=== PATIENT | male | born 1960 | race Caucasian/White ===

== ENCOUNTER 2018-08-17 08:51 | Outpatient (CLI) | payer BC, SELFPAY ==
[2018-08-17 10:15] LABS: Cholesterol 218 mg/dL (50-200); Glucose 114 mg/dL (70-100); HDL Cholesterol 43 mg/dL (40-60); LDL CHOLESTEROL 109 mg/dL (<100); Triglyceride 146 mg/dL (30-150)
[2018-08-17 10:32] LABS: Uric Acid 6.6 mg/dL (3.5-7.2)
== END 2018-08-17 09:11 ==
PROVIDERS: PCP General Practice; Visit Provider General Practice
DX: Z00.00 Encounter for general adult medical examination without abnormal findings (principal); M10.9 Gout, unspecified; R73.01 Impaired fasting glucose
CPT/HCPCS: 36415; 80061; 82947; 83721; 84550

== ENCOUNTER 2019-01-22 06:12 | Day surgery (SDC) | payer MEDICAID, SELFPAY ==
[2019-01-22 06:42] VITALS: BP 128/88; PULSE 73; RESP 18; TEMP 36.4; O2SAT 98
[2019-01-22] MEDS: Lactated Ringers 1,000 ML 80 ML IV (07:12)
--- NOTE | 2019-01-22 08:00 | W.COLOREPORT ---
Date of service: 01/22/19 Time of Service: 08:00 Colonoscopy Report Date of procedure: 01/22/19 Pre-op diagnosis general: CRC sreen Post-op diagnosis procedure note: same Procedure: CE Surgeon: Mine Blas Anesthesia proc note operative: GETA Estimated blood loss (mL): 0 Pathology: none sent Disposition: same day Indications: screen Prep: Miralax Retraction Time: 12 mins Findings: see reprot Procedure Description: After informed consent was obtained the patient was taken to the procedure room and placed in a left decubitous position. Monitors were applied and a time out was done. The patients name, date of , procedure, allergies to medications and metal in their body was reviewed. The patient was then sedated. Once sedated and comfortable a rectal exam was done. External exam was normal. Internal exam revealed a normal sphincter tone and no palpable masses. The scope was then introduced and retrofelexed. No internal hemorrhoids were identified. The scope was then advanced to the cecum minimal difficulty. The TI and appendiceal orifice were identified. The prep was suboptimal, lesions< 5mm could be missed. The scope was then slowly retracted over 12 minutes back into the rectum. no divertic. Polyps were removed at none. The scope was removed and the patient was woken up and taken back to Same day surgery in stable condition. The patient tolerated the procedure well and there were no immediate complications. Follow up: The patient should follow up in 10 years unless they develop changes in bowel habits or other new gastrointestinal complaints.
--- NOTE | 2019-01-22 08:03 | W.PM.DSUDISC ---
Discharge Plan Disposition Patient Disposition: HOME Condition: Good Discharge Details Attending Provider: Mine Blas Primary Care Provider: Meño Macias Home Meds and New Rx's Prescriptions: Continued clomipramine 25 mg capsule 150 mg PO HS RF: 0 fluoxetine 60 MG tablet 60 mg PO DAILY RF: 0 metoprolol tartrate 100 mg Tablet 100 mg PO BID RF: 0 amlodipine 2.5 mg Tablet 2.5 mg PO DAILY RF: 0 Discontinued polyethylene glycol 3350 17 gram/dose powder 238 g PO ONCE Qty: 238 RF: 0 bisacodyl [Dulcolax (bisacodyl)] 5 mg tablet,delayed release (DR/EC) 5 mg PO ONCE Qty: 4 RF: 0 Discharge Instructions Additional Instructions: Findings: normal Follow up: repeat in 10 yrs Please call if you develop: fevers >101.5 Nausea or Vomiting Abdominal pain that is not transient DAY SURGERY UNIT POST COLONOSCOPY INSTRUCTIONS 1. Because there will be medication in your system for the next 24 hours, you may feel a little sleepy. Your coordination will be affected. Therefore: a. Do not drive or operate dangerous equipment for 24 hours. b. Do not drink alcohol beverages for 24 hours (not even beer). c. Plan to go home and rest for the day. 2. Generally there are no restrictions on your activity after a day or so has gone by, but you may feel a bit fatigued for a few days. 3 After you arrive home you may have a light meal and return to a normal diet as you can tolerate it without feeling sick to your stomach. 4. After surgery, you may feel pain or discomfort. This should be only transient, but if it persists please contact your doctor. 5. If there are any questions regarding the findings of your procedure, please feel free to contact your doctor. 6. If you are unable to contact your doctor with a problem, contact the hospital at [phone]. 7. Continue all your regular medications unless directed otherwise. I understand the above instructions and have no questions. Signature of Patient or Responsible Adult Escort Date/Time Name of Responsible Adult Escort Signature of Nurse Date/Time Activity:: no lifting over 10# or strenuous acitivity x 24 Diet:: sm lit meal today DS: Diagnosis Discharge Diagnosis (1) Screen for colon cancer: Status: Acute
[2019-01-22 08:40] VITALS: BP 123/81; PULSE 69; RESP 18; TEMP 36.5; O2SAT 96
== END 2019-01-22 08:55 | disposition home or self-care (01) ==
PROVIDERS: PCP General Practice; Visit Provider Surgery
PROC: 0DJD8ZZ Inspection of Lower Intestinal Tract, Via Natural or Artificial Opening Endoscopic (ICD-10-PCS; CPT 45378; principal; 2019-01-22 07:30)
DX: Z12.11 Encounter for screening for malignant neoplasm of colon (principal)
CPT/HCPCS: 45378

== ENCOUNTER 2019-01-28 09:53 | Outpatient (CLI) | payer MEDICAID, SELFPAY ==
--- NOTE | 2019-01-28 09:39 | DI.RAD_ITS ---
SYMPTOM/DIAGNOSIS: TKA RIGHT KNEE: Comparison is made with 21 Feb 2018. There has been no change in the right knee prosthesis. There are some bony densities seen adjacent to the superolataeral aspect of the patella which was not seen on the previous exam. No joint effusion is visible.
--- NOTE | 2019-01-28 09:39 | DI.RAD_ITS ---
SYMPTOM/DIAGNOSIS: TKA LEFT KNEE: Comparison is made with 21 Feb 2018. There has been no change in the appearance of the knee prosthesis No abnormal bony lucencies are seen.
== END 2019-01-28 10:13 ==
PROVIDERS: PCP General Practice; Visit Provider Physician Assistant
DX: Z96.653 Presence of artificial knee joint, bilateral (principal); Z47.1 Aftercare following joint replacement surgery
CPT/HCPCS: 73560

== ENCOUNTER 2019-06-03 12:14 | Outpatient (CLI) | payer MEDICAID, SELFPAY ==
--- NOTE | 2019-06-03 12:12 | DI.RAD_ITS ---
SYMPTOM/DIAGNOSIS: NEW FALL WITH PAIN PELVIS AND LEFT HIP: Comparison is made with 02 May 2018. There has been no change in the left total hip prosthesis or surrounding bone. There are stable severe degenerative changes of the right hip.
== END 2019-06-03 12:34 ==
PROVIDERS: PCP General Practice; Visit Provider Student in an Organized Health Care Education/Training Program
DX: Z96.642 Presence of left artificial hip joint (principal); M25.552 Pain in left hip; M16.11 Unilateral primary osteoarthritis, right hip; W19.XXXA Unspecified fall, initial encounter
CPT/HCPCS: 73502

== ENCOUNTER 2019-07-16 10:40 | Outpatient (CLI) | payer MEDICAID, SELFPAY ==
[2019-07-16 11:12] LABS: HCT 40.4 % (40.0-50.0); HGB 13.3 g/dL (13.5-17.5); Mean Corp. HGB Concentration 32.9 g/dL (32.0-36.0); Mean Corpuscular Hemoglobin 27.5 pg (27.0-33.0); Mean Corpuscular Volume 83.6 fL (80-95); Mean Platelet Volume 7.8 fL (8.0-11.0); Platelet Count 538 x1000/uL (130-400); RBC 4.83 m/cumm (4.50-6.00); RBC Distribution Width 14.2 % (11.8-14.1); White Blood Cell Count 7.88 k/cumm (4.4-10.8)
[2019-07-16 12:50] LABS: ALT 34 U/L (16-63); AST 16 U/L (15-37); Albumin 3.4 g/dL (3.4-5.0); Alkaline Phosphatase 189 U/L (46-116); Anion Gap 10.2 mmol/L (3-11); BUN 17 mg/dL (7-18); Bilirubin, Total 0.3 mg/dL (0.2-1.0); CO2 25.8 mmol/L (21.0-32.0); Calcium 8.9 mg/dL (8.5-10.1); Chloride 99 mmol/L (98-107); Glucose 115 mg/dL (70-100); Potassium 4.4 mmol/L (3.5-5.1); Sodium 135 mmol/L (136-145); TSH (W/Ref FT4) 3.42 uIU/mL (0.36-3.74)
== END 2019-07-16 11:00 ==
PROVIDERS: PCP General Practice; Visit Provider General Practice
DX: R53.83 Other fatigue (principal); R06.02 Shortness of breath
CPT/HCPCS: 36415; 80053; 85027; 84443

== ENCOUNTER 2019-07-28 14:30 | Emergency (ER) | payer MEDICAID, SELFPAY ==
[2019-07-28 14:41] VITALS: BP 136/79; PULSE 86; RESP 16; O2SAT 86
--- NOTE | 2019-07-28 16:05 | ED.GENADUL_ITS ---
Discharge Plan Disposition Patient Disposition: HOME Condition: Improving Discharge Details Chief Complaint: Epistaxis Clinical Impression: Acute anterior epistaxis Primary Care Provider: Meño Macias ED Provider: Marcella Roman Home Meds and New Rx's Prescriptions: No Action clomipramine 25 mg capsule 150 mg PO HS RF: 0 fluoxetine 60 MG tablet 60 mg PO DAILY RF: 0 amlodipine 5 mg Tablet 5 mg PO DAILY AM RF: 0 metoprolol tartrate 50 mg Tablet 50 mg PO BID RF: 0 Discharge Instructions Instructions: Nosebleed (ED) Additional Instructions: Please return to the emergency department for any new or significant worsening of symptoms such as continued persistent nosebleeding or any odd bruising or bleeding episodes from anywhere else. Otherwise if you do have a nosebleed you may use [id number] Afrin and apply continuous pressure for at least 20 minutes before reassessing to see if nosebleed stops. Please refrain from any trauma even minor to the nose as this may restart your nosebleed. If you continue to get recurrent nosebleeds you may follow-up with your primary care provider or ENT as needed. Referrals: Terrence Topete, [OSTEOPATHIC DOCTOR] - (As needed for reassessment or if you get repetitive nosebleeds) Discharge Data Discharge Date/Time-TO BE ENTERED AT DEPARTURE: 07/28/19 16:55 Medical Decision Making <Brennan Chung NP - Last Filed: 07/31/19 08:16> Patient presenting the emergency department for chief complaint of epistaxis from the left nare. Patient states that his bloody nose started approximately 1 hour ago. He attempted to apply pressure in the back but does continue to bleed. Patient denies being on any blood thinners, any known trauma, any other hematological symptoms. Physical exam shows clots present in left nare with dripping blood. operations staff specialist security placed nasal clip on nose. A clip was removed at least 20 minutes or greater after application and clot was suctioned from nose. Visual examination of the left nare shows no further bleeding, no source of bleeding, no return of symptoms after clot removal. Atomizer was utilized to apply less than .5ml of phenylephrine/lidocaine to ensure continued hemostasis. Patient reassessed after half an hour and continue to show no further bleeding. <BERNARDA Espinal - Last Filed: 07/28/19 16:53> Accepted signout of this very pleasant 58-year-old man for reevaluation after 1 hour to be sure nosebleed has continued to resolve. Patient is feeling well, has no active bleeding at this time on reexamination. The patient was stable and requested discharge. Prior to discharge, my usual and customary return precautions were reviewed with the patient - this included follow-up instructions and reasons to return to the Emergency Department if conditions worsens, does not improve as expected, or other new concerns arise. HPI <Brennan Chung NP - Last Filed: 07/31/19 08:16> General Mode of arrival: ambulatory . Date/Time Provider Initiated Documentation: 07/28/19 14:57 . Limitations to Documentation: no limitations . Information obtained by: patient and RN notes reviewed . History of Present Illness 58 year old M presents to the emergency department with the chief complaint of Epistaxis, described as moderate, Quality is described as other (Denies pain), and is localized to the left (nare). Patient started experiencing this hour(s) (1) and it has been constant. No relieving factors improve symptom(s), No exacerbating factors reported . Patient notes no other symptoms.. Related Data Home Medications Medication Instructions Recorded Confirmed fluoxetine 60 mg PO DAILY 02/25/14 07/28/19 clomipramine 25 mg capsule 150 mg PO HS tab-cap 01/11/19 07/28/19 amlodipine 5 mg PO DAILY AM 07/28/19 07/28/19 metoprolol tartrate 50 mg PO BID 07/28/19 07/28/19 Allergies Allergy/AdvReac Type Severity Reaction Status Date / Time Penicillins Allergy Severe Anaphylaxsi Verified 07/28/19 14:45 s General Stated Complaint: Epistaxis JASSON: 3 Review of Systems <Brennan Chung NP - Last Filed: 07/31/19 08:16> ENT Ears, Nose, Mouth, and Throat: Reports as per HPI, Reports epistaxis, Denies nasal congestion, Denies nasal obstruction and Denies nasal trauma Gastrointestinal Gastrointestinal: Denies abdominal pain, Denies nausea and Denies vomiting Integumentary/Breasts Skin/Breast: Denies rash and Denies unusual bruising PFSH <Brennan Chung NP - Last Filed: 07/31/19 08:16> Medical History Depression (Chronic) HTN (hypertension) (Chronic) IGT (impaired glucose tolerance) (Acute) Normal colonoscopy (Resolved) 01/22/19, Dr Blas, [facility], normal, repeat in 10 years. mg Surgical History Carpal tunnel syndrome (Inactive 01/28/14) s/p R ECTR History of total left hip replacement (Acute 05/09/17) Dr. Justin History of total left knee replacement (TKR) (Resolved 02/06/18) Dr. Justin History of total right knee replacement (TKR) (Inactive 12/26/17) Dr. Justin *complicated by partial quad rupture a few weeks post surgery. Family History Other Diabetes Social History Smoking/Tobacco Use Status: Never Alcohol Intake: current Alcohol Intake frequency: 0-2 drinks per day Alcohol type: beer Drug use: Never Substance use type: does not use What type of physical activity do you participate in: walking Do you feel safe at home: Yes Do you feel safe in your relationship?: Yes Exam <Brennan Chung NP - Last Filed: 07/31/19 08:16> Const General: cooperative, no acute distress and not ill appearing Orientation: alert, awake and oriented x3 HENMT Head: normal to inspection and atraumatic Ears: hearing grossly normal bilaterally and external ears normal General nose exam: epistaxis on the left anterior source and active bleeding Mouth: moist mucous membranes Throat: posterior oropharynx normal, tonsils normal and uvula midline Resp Effort & Inspection: normal respiratory effort, able to speak in complete sentences and no respiratory distress Neuro General: alert, awake, oriented x3 and moves all extremities Course <Brennan Chung NP - Last Filed: 07/31/19 08:16> Vital Signs Vital signs: Vital Signs Pulse 86 07/28/19 14:41 Respiratory Rate 16 07/28/19 14:41 Blood Pressure 136/79 07/28/19 14:41 Pulse Oximetry 86 L 07/28/19 14:41 Pulse 86 07/28/19 14:41 Respiratory Rate 16 07/28/19 14:41 Respiratory Effort 07/28/19 14:49 Blood Pressure 136/79 07/28/19 14:41 Pulse Oximetry 86 L 07/28/19 14:41 Oxygen Delivery Method Room Air 07/28/19 14:41 Oxygen Flow Rate 0 07/28/19 14:41 Pain Level 0 07/28/19 14:41 Sign Out <Brennan Chung NP - Last Filed: 07/31/19 08:16> Sign Out Data: Sign Out Comment: Patient signed out to Shirlene MENCHACA pending reassessment after 1 hour post treatment for epistaxis. If patient has no recurrence patient may be discharged with no further interventions. Last updated by Brennan Chung NP at 07/28/19 16:09
[2019-07-28 16:39] VITALS: PULSE 74; RESP 16; O2SAT 98
--- NOTE | 2019-07-28 16:39 | NUR.NOTE ---
Nursing Note: no bleeding during er course.
== END 2019-07-28 16:55 | disposition home or self-care (01) ==
PROVIDERS: Emergency Provider Physician Assistant; PCP General Practice
DX: R04.0 Epistaxis (principal); I10 Essential (primary) hypertension
CPT/HCPCS: 99282

== ENCOUNTER 2019-07-31 21:39 | Emergency (ER) | payer MEDICAID, SELFPAY ==
--- NOTE | 2019-07-31 00:12 | DI.CT_ITS ---
EXAM: CT LOWER EXTREMITY LT W CLINICAL HISTORY: left hip/prox femur. TECHNIQUE: The examination was carried out with injection of 100 cc of Omnipaque 350. COMPARISON: No exams were available for comparison FINDINGS: The patient is status post left TRENA. There is diffuse sclerosis and equivocal slight lucency noted surrounding the femoral component of the left total hip prosthesis. A periosteal reaction is noted. The possibility of osteomyelitis is not excluded in the correct clinical setting. IMPRESSION: Patient is status post left TRENA. There is diffuse sclerosis and equivocal slight lucency noted surro unding the femoral component of the prosthesis. A periosteal reaction is identified. Osteomyelitis c ould not be excluded in the appropriate clinical setting.
[2019-07-31 21:47] VITALS: BP 132/76; PULSE 78; RESP 18; TEMP 36; O2SAT 96
--- NOTE | 2019-07-31 21:50 | W.ED.GENAD ---
Discharge Plan Disposition Patient Disposition: HOME Condition: Stable Discharge Details Chief Complaint: Orthopedic Clinical Impression: History of total left hip replacement, Acute pain of left hip, Inflammation Primary Care Provider: Meño Macias ED Provider: Janice Stevens Home Meds and New Rx's Prescriptions: Continued clomipramine 25 mg capsule 150 mg PO HS RF: 0 fluoxetine 60 MG tablet 60 mg PO DAILY RF: 0 amlodipine 5 mg Tablet 5 mg PO DAILY AM RF: 0 metoprolol tartrate 50 mg Tablet 50 mg PO BID RF: 0 Discharge Instructions Instructions: Oxycodone, Rapid Release (By mouth), Leg Pain (ED) Additional Instructions: You have elevation of your inflammatory markers obtained today. There is concern for possible loosening of the implant and possible infection on the CT obtained this evening. Please follow-up with Dr. Justin first thing tomorrow morning. You may choose Tylenol and/or ibuprofen as needed for discomfort. You may augment this with oxycodone every 4 hours as needed for discomfort if that is unsuccessful. Take this medication only as prescribed, do not drive will taking this medication. If you develop fever/chills, rash, increased pain or other new/worsening symptoms please seek care urgently once again. Referrals: Meño Macias MD [Primary Care Provider] - Brennan Justin MD [ [facility] STAFF PHYSICIAN] - Medical Decision Making Patient is a 58-year-old male with history of depression and hypertension presenting today with chief complaint of left hip pain. He is accompanied by his . He reports that he had his left hip replacement 2 years ago and has been doing quite well touch to few months ago. Reports unusual fall while lifting buckets a few months ago and since that time is had low-level discomfort. He was seen by Dr. Vidal 2 months ago at which time he was referred for physical therapy. X-rays have been obtained and there was concern for possible lucency. However, seem to be quite subtle and early. They felt that conservative management was appropriate initially. However, despite this management, the pain is worsened. He reports the pain greatly exacerbated with past 24 to 48 hours. Denies any fevers or chills. Pain is purely positional. States that the leg is hanging more when he goes from sitting to standing position, the pain is a 1010. At this time, he is laying in a more supine position reports no pain. Not no rash. But the wound care to help well. No pain when standing upright and still on the hip. Pain does not radiate. reports that since being in physical therapy, his pain has continued to increase and that he is in need to increase the amount of support he is using with ambulation to help with discomfort. Is currently using crutches but is weightbearing with crutches. This escalation from the cane that he had been using recently. On exam, he is resting comfortably. Vital signs within normal limits. He has good range of motion of the hip pain seems greatly exacerbated particularly with internal rotation of the PIP. He has no pain with axial loading of the hip. He indicates the posterior lateral aspect of the hip is area of discomfort however no pain is elicited with palpation. Incision is healed up well. Given the recent concern for orthopedics, I feel that repeat imaging is appropriate. I did advise patient may need bone scan if symptoms persisted. Was contacted by Dr. Justin who advised he was concern for possible infectious etiology given the sudden increase in his discomfort. Will obtain CBC, CMP, ESR, CRP as well as CT imaging. FINDINGS: Bones/joints: Total left hip arthroplasty There is a minimal lucency along the distal tip of the femoral component which could represent early loosening in the appropriate clinical setting. Fairly marked osteoarthritis of the right hip is again seen unchanged. The pelvis is intact. No fracture seen. Soft tissues: Unremarkable. IMPRESSION: 1. Total left hip arthroplasty lucency femoral component could represent early loosening and clinical correlation suggested. No acute findings. 2. Right hip osteoarthritis unchanged. Dr. Justin reviewed the images and is concerned for possible periosteal reaction of the femur which is new from imaging 2 months ago. Awaiting results of the CMP to move forward with CT. Discussed this plan with the patient's are in agreement. Patient was given ibuprofen for discomfort. He is otherwise resting comfortably, do not feel that further intervention for pain management is appropriate at this time. Labs reviewed. White count is normal. Patient is anemic with a hemoglobin of 12.5 but it is not unusual for him.. ESR is slightly elevated at 21. CRP is elevated at 1.24. FINDINGS: Bones/joints: Patient status post left-sided hip replacement. There is diffuse sclerosis and equivocal slight lucency noted surrounding the femoral component of the total left hip replacement. Periosteal reaction is noted. Osteomyelitis not excluded in the correct clinical setting. Soft tissues: Normal. IMPRESSION: 1. Patient status post left-sided hip replacement. 2. There is diffuse sclerosis and equivocal slight lucency noted surrounding the femoral component of the total left hip replacement. Periosteal reaction is noted. Osteomyelitis not excluded in the correct clinical setting. Discussed these findings with the patient. We discussed treatment options. At this time, there is some mild suggestion of osteomyelitis patient will need further evaluation for this. However, he does not have any evidence to suggest sepsis or systemic illness. His pain has been present for the past 2 months and has progressively been increasing. Patient is requesting discharge at this time. Dr. Justin's plan to follow-up with the patient in the morning. will call speak with Dr. Justin tomorrow to discuss further evaluation and intervention as warranted. We did discuss potential for inpatient admission and they prefer to hold off at this time and discuss further with Dr. Justin tomorrow. He was given return precautions. We discussed pain management techniques. Again, the patient is largely completely pain-free while here. Very specific movements that he has severe pain. He feels something is loose. Patient sent home with 3 tablets of oxycodone for the evening if needed. However, patient reports that he does not believe he will need these as he typically has such low level pain in the hip. He was adivsed he may take one tab every 4-6 hours as needed for pain. Advised not to drive, not to take with ETOH. All his questions and concerns were addressed and is agreement with this plan. HPI General Mode of arrival: ambulatory (on crutches). Date/Time Provider Initiated Documentation: 07/31/19 21:43. Limitations to Documentation: no limitations. Information obtained by: patient, family () and RN notes reviewed. History of Present Illness 58 year old M presents to the emergency department with the chief complaint of left hip pain, described as severe, with intensity rated at 10. Quality is described as stabbing, and is localized to the left and lower extremity. Patient reports no radiation. Patient started experiencing this hour(s) (acute on chronic) and it has been intermittent (only with certain movements). Immobilization improves symptom(s), Movement worsens symptoms . Patient notes no other symptoms.; denies chest pain, cough, fever/chills, malaise, rash, shortness of breath and weakness. Patient did receive the following treatments prior to arrival, other (tylenol) Related Data Home Medications Medication Instructions Recorded Confirmed fluoxetine 60 mg PO DAILY 02/25/14 07/31/19 clomipramine 25 mg capsule 150 mg PO HS tab-cap 01/11/19 07/31/19 amlodipine 5 mg PO DAILY AM 07/28/19 07/31/19 metoprolol tartrate 50 mg PO BID 07/28/19 07/31/19 Allergies Allergy/AdvReac Type Severity Reaction Status Date / Time Penicillins Allergy Severe Anaphylaxsi Verified 07/31/19 21:53 s General JASSON: 3 Review of Systems Constitutional Constitutional: Reports as per HPI, Denies chills, Denies fever(s), Denies headache(s) and Denies weakness ENT Ears, Nose, Mouth, and Throat: Denies headache(s) Cardiovascular Cardiovascular: Reports as per HPI Respiratory Respiratory: Reports as per HPI and Denies cough Musculoskeletal Musculoskeletal: Reports as per HPI and Denies tingling Integumentary/Breasts Skin/Breast: Reports as per HPI, Denies rash and Denies wounds Neurologic Neurologic: Reports as per HPI, Denies headache(s), Denies tingling, Denies paresthesias and Denies weakness [facility] Medical History Depression (Chronic) HTN (hypertension) (Chronic) IGT (impaired glucose tolerance) (Acute) Normal colonoscopy (Resolved) 01/22/19, Dr Blas, [facility], normal, repeat in 10 years. mg Surgical History Carpal tunnel syndrome (Inactive 01/28/14) s/p R ECTR History of total left hip replacement (Acute 05/09/17) Dr. Justin History of total left knee replacement (TKR) (Resolved 02/06/18) Dr. Justin History of total right knee replacement (TKR) (Inactive 12/26/17) Dr. Justin *complicated by partial quad rupture a few weeks post surgery. Social History Smoking/Tobacco Use Status: Never Alcohol Intake: current Alcohol Intake frequency: 0-2 drinks per day Alcohol type: beer Drug use: Never Substance use type: does not use What type of physical activity do you participate in: walking Do you feel safe at home: Yes Do you feel safe in your relationship?: Yes Exam Const General: cooperative, healthy appearing, comfortable, no acute distress, well developed and well groomed Nutritional Appearance: average body habitus and well nourished Orientation: alert and awake Resp Effort & Inspection: normal respiratory effort, able to speak in complete sentences and no respiratory distress Cardio Rate: regular rate Rhythm: regular rhythm Back/Spine/Pelvis Pelvis: no pain with anterior-posterior compression and no pain with lateral compression Skin General skin exam: no rashes or lesions noted Lesions: no lesions Rashes: no rashes Trauma: no lacerations or abrasions Neuro General: alert and awake Cognition: normal cognition Speech: speech normal Gait: normal gait Motor: muscle tone normal throughout Sensory Exam: no sensory deficits noted Extrem Right lower extremity: normal capillary refill, no joint enlargement, hip/thigh Details: normal to inspection; no tenderness (indicates posterior lateral area as site of pain but none elicited with palpation), no swelling, ROM abnormal (limited IR with knee flexed secondary to pain), no abrasions, no lacerations, no ecchymosis, no crepitus, no penetrating wound, no deformity and no unusual warmth, knee Details: normal to inspection and foot Details: normal capillary refill, normal to inspection and vascular exam Details: dorsalis pedis pulse present; no edema Psych Appearance: grossly normal and well kempt Mental Status: mental status grossly normal Speech and Movement: speech and movement normal
[2019-07-31] MEDS: Ibuprofen 600 MG TAB PO (22:13)
--- NOTE | 2019-07-31 22:29 | DI.RAD_ITS ---
EXAM: XR HIP LT COMPLETE AP PELVIS INDICATION: pain, recent question of lucency. COMPARISON: XR hip LT AP lat only from 06/03/2019 TECHNIQUE: 2D digital imaging was performed. FINDINGS: Patient is status post TRENA. There is minimal radiolucency along the distal tip of the femoral compon ent which could represent early loosening in the appropriate clinical setting. Note is also made of marked osteoarthritis involving the right hip which is unchanged. The pelvis is. No fracture is seen . The soft tissues are unremarkable. IMPRESSION: The patient is status post total left hip arthroplasty. Lucency involving the tip of the femoral comp onent could conceivably represent loosening. Clinical correlation is recommended. There is no acute abnormality. Note is also made of DJD involving the right hip.
[2019-07-31] MEDS: Normal Saline 500 ML IV (22:52)
[2019-07-31 22:56] LABS: Abs Immature Grans 0.04 k/cumm (0.0-0.09); Absolute Basophil Count 0.03 k/cumm (0.0-0.2); Absolute Eosinophil Count 0.26 k/cumm (0.0-0.7); Absolute Lymphocyte Count 2.61 k/cumm (1.2-3.4); Absolute Monocyte Count 1.26 k/cumm (0.11-0.7); Absolute Neutrophil Count 5.25 k/cumm (1.2-6.7); Basophils % 0.3; Eosinophils % 2.8; HGB 12.5 g/dL (13.5-17.5); Immature Grans % 0.4; Lymphocytes % 27.6; Mean Corp. HGB Concentration 32.9 g/dL (32.0-36.0); Mean Corpuscular Hemoglobin 27.5 pg (27.0-33.0); Mean Corpuscular Volume 83.7 fL (80-95); Mean Platelet Volume 7.9 fL (8.0-11.0); Monocytes % 13.3; Neutrophils % 55.6; Platelet Count 405 x1000/uL (130-400); RBC 4.54 m/cumm (4.50-6.00); RBC Distribution Width 14.9 % (11.8-14.1); White Blood Cell Count 9.45 k/cumm (4.4-10.8)
--- NOTE | 2019-07-31 23:06 | DI.VRAD_ITS ---
PROCEDURE INFORMATION: Exam: XR Left Hip with Pelvis when Performed Exam date and time: 07/31/2019 10:27 PM Clinical history: 58 years old, male; Hip pain; Left hip; Prior surgery; Surgery date: 6+ months; Surgery type: Thr 2+ years ago TECHNIQUE: Imaging protocol: XR Left hip with pelvis when performed. Views: 2 or 3 views. COMPARISON: CR XR hip LT AP lat only 06/03/2019 12:38 PM FINDINGS: Bones/joints: Total left hip arthroplasty There is a minimal lucency along the distal tip of the femoral component which could represent early loosening in the appropriate clinical setting. Fairly marked osteoarthritis of the right hip is again seen unchanged. The pelvis is intact. No fracture seen. Soft tissues: Unremarkable. IMPRESSION: 1. Total left hip arthroplasty lucency femoral component could represent early loosening and clinical correlation suggested. No acute findings. 2. Right hip osteoarthritis unchanged. Dictated and Authenticated by: Jatin Arriaza MD. Ordering:INGA Camacho MD
[2019-07-31 23:16] LABS: ALT 41 U/L (16-63); AST 23 U/L (15-37); Albumin 3.2 g/dL (3.4-5.0); Alkaline Phosphatase 161 U/L (46-116); Anion Gap 12.4 mmol/L (3-11); BUN 20 mg/dL (7-18); Bilirubin, Total 0.2 mg/dL (0.2-1.0); C-Reactive Protein 1.24 mg/dL (0.0-0.3); CO2 24.6 mmol/L (21.0-32.0); CREATININE 1.09 mg/dL (0.70-1.30); Calcium 8.6 mg/dL (8.5-10.1); Chloride 100 mmol/L (98-107); Glucose 121 mg/dL (70-100); Potassium 3.8 mmol/L (3.5-5.1); Sodium 137 mmol/L (136-145)
[2019-07-31 23:33] LABS: ESR 21 mm/hr (1-20)
[2019-08-01] MEDS: Omnipaque 350 MG/ML 100 ML BTL IJ (00:07)
--- NOTE | 2019-08-01 00:16 | NUR.NOTE ---
Pt returns from CT. Denies pain at this time.
--- NOTE | 2019-08-01 01:10 | DI.VRAD_ITS ---
PROCEDURE INFORMATION: Exam: CT Left Lower Extremity With Contrast, Hip Exam date and time: 07/31/2019 11:30 PM Clinical history: 58 years old, male; Pain; Hip; Left; Prior surgery; Surgery date: 6+ months; Surgery type: Thr 2+ years ago TECHNIQUE: Imaging protocol: CT of the Left lower extremity with intravenous contrast was performed. Exam focused on the hip. Radiation optimization: All CT scans at this facility use at least one of these dose optimization techniques: automated exposure control; mA and/or kV adjustment per patient size (includes targeted exams where dose is matched to clinical indication); or iterative reconstruction. Contrast material: [id number]; Contrast volume: 100 ml; Contrast route: IV LAC 18G; COMPARISON: CR XR HIP LT COMPLETE AP PELVIS 07/31/2019 10:22 PM FINDINGS: Bones/joints: Patient status post left-sided hip replacement. There is diffuse sclerosis and equivocal slight lucency noted surrounding the femoral component of the total left hip replacement. Periosteal reaction is noted. Osteomyelitis not excluded in the correct clinical setting. Soft tissues: Normal. IMPRESSION: 1. Patient status post left-sided hip replacement. 2. There is diffuse sclerosis and equivocal slight lucency noted surrounding the femoral component of the total left hip replacement. Periosteal reaction is noted. Osteomyelitis not excluded in the correct clinical setting. Dictated and Authenticated by: Eric Browning MD. Ordering:INGA Camacho MD
[2019-08-01 01:39] VITALS: BP 120/69; PULSE 85; RESP 16; TEMP 36.8; O2SAT 98
[2019-08-01] MEDS: oxyCODONE 5 MG TAB 15 MG PO (01:43)
== END 2019-08-01 01:45 | disposition home or self-care (01) ==
PROVIDERS: Emergency Provider Physician Assistant; PCP General Practice
DX: M25.552 Pain in left hip (principal); G89.29 Other chronic pain; Z96.642 Presence of left artificial hip joint; I10 Essential (primary) hypertension
CPT/HCPCS: 80053; 85652; 96360; 99285; 73502; 73701; 85025; 86140; 99284; J3490

== ENCOUNTER 2019-08-01 11:53 | Outpatient (CLI) | payer MEDICAID, SELFPAY ==
--- NOTE | 2019-08-01 15:30 | DI.RAD_ITS ---
EXAM: RF JOINT INJECTION FLUORO GUID CLINICAL HISTORY: PAIN- ASPIRATION L HIP, hx of total hip replacement TECHNIQUE: COMPARISON: No exams were available for comparison FINDINGS: Fluoroscopy was utilized by Dr. Justin during left hip injection. Hard copy show needle placement over the left hip joint with total hip joint replacement in position. IMPRESSION:
[2019-08-01] MEDS: Bupivacaine 0.5% Pres-Free 10 ML VIAL 5 ML IJ (16:06)
--- NOTE | 2019-08-02 11:33 | W.PROCNOTE ---
Date of service: 08/01/19 Time of Service: 16:03 Procedure Note Date of procedure: 08/01/19 Procedure: Left Hip aspiration with Fluoroscopic Guidance Surgeon/Proceduralist/Physician: Brennan Justin Procedure Diagnosis: Left Hip Osteoarthritis Procedure Indications: Jose has had persistent pain of the LEFT hip and groin over the last 2 months. Noninvasive measures have been tried but symptoms have only worsened. He had an elevated inflammatory markers. To rule out infection, I recommended an aspiration of the left hip. I had discussed the risks of the procedure and the patient elected to proceed. Procedure Description: Angel was greeted in the flouroscopy room. The correct side was identified and the consent was reviewed with the patient and signed. The patient was then placed in the supine position on the fluoroscopy table. The LEFT hip was then prepped with Chloraprep. The anterolateral injection starting point was identiifed by bony landmarks and fluoroscopy. The skin and soft tissue in the tract of the injection was anesthetized with 1% Lidocaine. A spinal needle was then inserted deep into the hip joint at the level of the lateral femoral neck under fluoroscopic guidance. Contact with the implant was palpated at the end of the needle and aspiration was performed. I was able to gain about a cc fluid from this position. I did try 3 other positions only gaining another cc of fluid. It was blood-tinged and cloudy. This was sent to the lab for cell count and culture. A bandaid was placed on the injection site. The patient tolerated the procedure well and noted improvement in pre-injection pain.
== END 2019-08-01 12:13 ==
PROVIDERS: PCP General Practice; Visit Provider Student in an Organized Health Care Education/Training Program
DX: M25.552 Pain in left hip (principal); M16.12 Unilateral primary osteoarthritis, left hip; Z96.642 Presence of left artificial hip joint
CPT/HCPCS: 20610; 77002

== ENCOUNTER 2019-08-01 16:07 | Outpatient (REF) | payer MEDICAID, SELFPAY ==
[2019-08-01 16:43] LABS: Clarity CLOUDY
[2019-08-01 16:44] LABS: Nucleated Cells 32000 /MM3 (0-0)
[2019-08-01 17:18] LABS: Mononuclear Cells 3 % (0-0); Polynuclear Cells 97 % (0-0)
== END 2019-08-01 16:27 ==
LOC: LBN 16:07
PROVIDERS: PCP General Practice; Visit Provider Student in an Organized Health Care Education/Training Program
DX: M25.552 Pain in left hip (principal); M16.12 Unilateral primary osteoarthritis, left hip; Z96.642 Presence of left artificial hip joint
CPT/HCPCS: 87077; 87070; 87186; 87205; 89051

== ENCOUNTER 2019-08-19 14:27 | Outpatient (REF) | payer MEDICAID, SELFPAY ==
[2019-08-19 14:47] LABS: Abs Immature Grans 0.22 k/cumm (0.0-0.09); Absolute Basophil Count 0.06 k/cumm (0.0-0.2); Absolute Eosinophil Count 0.67 k/cumm (0.0-0.7); Absolute Lymphocyte Count 2.27 k/cumm (1.2-3.4); Absolute Monocyte Count 1.39 k/cumm (0.11-0.7); Absolute Neutrophil Count 6.22 k/cumm (1.2-6.7); Basophils % 0.6; Eosinophils % 6.2; HCT 31.2 % (40.0-50.0); Mean Corp. HGB Concentration 32.1 g/dL (32.0-36.0); Mean Corpuscular Hemoglobin 27.5 pg (27.0-33.0); Mean Corpuscular Volume 85.7 fL (80-95); Mean Platelet Volume 8.2 fL (8.0-11.0); Monocytes % 12.8; Neutrophils % 57.4; Platelet Count 480 x1000/uL (130-400); RBC 3.64 m/cumm (4.50-6.00); RBC Distribution Width 15.2 % (11.8-14.1); White Blood Cell Count 10.83 k/cumm (4.4-10.8)
[2019-08-19 15:14] LABS: ALT 37 U/L (16-63); AST 26 U/L (15-37); Albumin 3.1 g/dL (3.4-5.0); Alkaline Phosphatase 108 U/L (46-116); Anion Gap 11.3 mmol/L (3-11); BUN 13 mg/dL (7-18); Bilirubin, Total 0.2 mg/dL (0.2-1.0); C-Reactive Protein 5.29 mg/dL (0.0-0.3); CO2 26.7 mmol/L (21.0-32.0); Calcium 8.3 mg/dL (8.5-10.1); Chloride 100 mmol/L (98-107); Glucose 129 mg/dL (70-100); Potassium 4.5 mmol/L (3.5-5.1); Sodium 138 mmol/L (136-145); Total Protein 6.1 g/dL (6.4-8.2)
== END 2019-08-19 14:47 ==
LOC: LBN 14:27
PROVIDERS: PCP General Practice; Visit Provider General Practice
DX: T84.52XD Infection and inflammatory reaction due to internal left hip prosthesis, subsequent encounter (principal); M25.552 Pain in left hip; Z96.642 Presence of left artificial hip joint
CPT/HCPCS: 80053; 85025; 86140

== ENCOUNTER 2019-08-26 11:22 | Outpatient (REF) | payer MEDICAID, SELFPAY ==
[2019-08-26 12:30] LABS: ALT 27 U/L (16-63); AST 20 U/L (15-37); Albumin 3.3 g/dL (3.4-5.0); Alkaline Phosphatase 133 U/L (46-116); Anion Gap 8.7 mmol/L (3-11); BUN 19 mg/dL (7-18); Bilirubin, Total 0.2 mg/dL (0.2-1.0); C-Reactive Protein 1.63 mg/dL (0.0-0.3); CO2 28.3 mmol/L (21.0-32.0); Calcium 8.6 mg/dL (8.5-10.1); Chloride 101 mmol/L (98-107); Glucose 111 mg/dL (70-100); Potassium 4.6 mmol/L (3.5-5.1); Sodium 138 mmol/L (136-145); Total Protein 6.3 g/dL (6.4-8.2)
[2019-08-26 12:35] LABS: Abs Immature Grans 0.07 k/cumm (0.0-0.09); Absolute Basophil Count 0.04 k/cumm (0.0-0.2); Absolute Eosinophil Count 0.67 k/cumm (0.0-0.7); Absolute Lymphocyte Count 1.69 k/cumm (1.2-3.4); Absolute Monocyte Count 1.05 k/cumm (0.11-0.7); Absolute Neutrophil Count 5.63 k/cumm (1.2-6.7); Basophils % 0.4; Eosinophils % 7.3; HCT 32.9 % (40.0-50.0); HGB 10.2 g/dL (13.5-17.5); Immature Grans % 0.8; Lymphocytes % 18.5; Mean Corpuscular Hemoglobin 27.1 pg (27.0-33.0); Mean Corpuscular Volume 87.5 fL (80-95); Mean Platelet Volume 8.3 fL (8.0-11.0); Monocytes % 11.5; Neutrophils % 61.5; Platelet Count 531 x1000/uL (130-400); RBC 3.76 m/cumm (4.50-6.00); RBC Distribution Width 16.2 % (11.8-14.1); White Blood Cell Count 9.15 k/cumm (4.4-10.8)
== END 2019-08-26 11:42 ==
LOC: LBN 11:22
PROVIDERS: PCP General Practice; Visit Provider General Practice
DX: M25.552 Pain in left hip (principal); Z96.642 Presence of left artificial hip joint; T84.52XD Infection and inflammatory reaction due to internal left hip prosthesis, subsequent encounter; Z79.2 Long term (current) use of antibiotics
CPT/HCPCS: 80053; 85025; 86140

== ENCOUNTER 2020-03-05 17:45 | Emergency (ER) | payer MEDICAID, SELFPAY ==
[2020-03-05] VITALS (11 sets, daily range): BP systolic 120–150; BP diastolic 69–89; PULSE 96–113; RESP 12–22; TEMP 36.7; O2SAT 94–97
[2020-03-05 18:34] LABS: Absolute Basophil Count 0.06 k/cumm (0.0-0.2); Absolute Eosinophil Count 0.23 k/cumm (0.0-0.7); Absolute Lymphocyte Count 1.98 k/cumm (1.2-3.4); Absolute Monocyte Count 0.91 k/cumm (0.11-0.7); Absolute Neutrophil Count 3.35 k/cumm (1.2-6.7); Basophils % 0.9; Eosinophils % 3.5; HCT 37.2 % (40.0-50.0); HGB 11.9 g/dL (13.5-17.5); Lymphocytes % 30.3; Mean Corpuscular Hemoglobin 23.3 pg (27.0-33.0); Mean Corpuscular Volume 72.8 fL (80-95); Mean Platelet Volume 7.8 fL (8.0-11.0); Monocytes % 13.9; Neutrophils % 51.4; Platelet Count 428 x1000/uL (130-400); RBC 5.11 m/cumm (4.50-6.00); White Blood Cell Count 6.53 k/cumm (4.4-10.8)
[2020-03-05 18:53] LABS: ALT 33 U/L (16-63); AST 20 U/L (15-37); Albumin 3.6 g/dL (3.4-5.0); Alkaline Phosphatase 136 U/L (46-116); Anion Gap 12.3 mmol/L (3-11); BUN 12 mg/dL (7-18); Bilirubin, Total 0.2 mg/dL (0.2-1.0); CO2 22.7 mmol/L (21.0-32.0); CREATININE 0.85 mg/dL (0.70-1.30); Calcium 8.4 mg/dL (8.5-10.1); Chloride 101 mmol/L (98-107); Creatine Kinase 90 U/L (39-308); Glucose 89 mg/dL (74-106); Magnesium 2.2 mg/dL (1.8-2.4); Potassium 3.8 mmol/L (3.5-5.1); Sodium 136 mmol/L (136-145); Total Protein 7.2 g/dL (6.4-8.2)
[2020-03-05 18:57] LABS: Anisocytosis 2+; Diff Comment RBC Morph Reviewed; Hypochromasia 1+; Macrocytosis 1+
[2020-03-05 18:58] LABS: Microcytosis 1+
[2020-03-05 19:05] LABS: Troponin I < 0.05 ng/mL (<0.06)
[2020-03-05 19:07] LABS: D-Dimer 1922 ng/mlFEU (<500)
[2020-03-05] MEDS: Lactated Ringers 1,000 ML 1000 ML IV (19:15)
[2020-03-05 19:26] LABS: ETHANOL BLOOD 158.4 mg/dL (<3)
--- NOTE | 2020-03-05 19:36 | DI.CT_ITS ---
EXAM: CT CHEST PE CTA CLINICAL HISTORY: syncope, elevated ddimer. TECHNIQUE: Imaging Protocol: Axial CT angiography was performed with multi-slice acquisition and mu lti-planar and/or 3D reconstructions. CONTRAST MATERIAL: Intravenous: Omnipaque 350 Contrast volume:100 cc COMPARISON: No exams were available for comparison FINDINGS: The exam is limited by poor contrast bolus timing. The pulmonary arteries are suboptimally opacified . Pulmonary Arteries: No gross evidence of filling defect to suggest pulmonary emboli. Subsegmental emb lewis are not excluded. Tracheobronchial tree: Patent where visualized. Mediastinum and Laurie: No dominant adenopathy or fluid collection. Pulmonary parenchyma: No consolidation or dominant measurable mass. No emphysematous or fibrotic katz ges. Pleura: No effusion or pneumothorax. Heart: The heart is not dilated. No coronary artery calcifications are seen. Aorta: Thoracic aorta non-dilated. Upper abdomen: Unremarkable. Bones: mild degenerative disc changes. IMPRESSION: Limited exam due to poor opacification of pulmonary arteries. Branch vessel emboli cannot be exclude d. No evidence of central pulmonary embolism. Clear lungs. RADIATION DOSE DELIVERED: 520.83mGy.cm Total DLP DATA REPOSITORY: All CT scans at this facility are submitted to the National Radiology Data Registry (NRDR) Dose Index Registry (DIR) with the [employer] (ACR). RADIATION OPTIMIZATION: All CT scans at this facility use at least one of these dose optimization te chniques: automated exposure control; mA and/or kV adjustment per patient size (includes targeted exa ms where dose is matched to clinical indication); or iterative reconstruction.
[2020-03-05] MEDS: Normal Saline Flush 10 ML SYR IVP (19:44)
[2020-03-05] MEDS: Normal Saline - Diluent 50 ML VIAL IV (19:45)
[2020-03-05] MEDS: Omnipaque 350 MG/ML 100 ML BTL IJ (19:45)
--- NOTE | 2020-03-05 20:19 | DI.VRAD_ITS ---
PROCEDURE INFORMATION: Exam: CT Angiography Chest With Contrast Exam date and time: 03/05/2020 7:37 PM Age: 59 years old Clinical indication: Other: Syncope, elevated d-dimer TECHNIQUE: Imaging protocol: Computed tomographic angiography of the chest with intravenous contrast. 3D rendering: MIP and/or 3D reconstructed images were created by the technologist. Radiation optimization: All CT scans at this facility use at least one of these dose optimization techniques: automated exposure control; mA and/or kV adjustment per patient size (includes targeted exams where dose is matched to clinical indication); or iterative reconstruction. Contrast material: [id number]; Contrast volume: 100 ml; Contrast route: IV RAC 18G; COMPARISON: No relevant prior studies available. FINDINGS: Pulmonary arteries: Suboptimal contrast bolus for the evaluation of pulmonary emboli. Grossly, no large emboli are noted within the main pulmonary arteries, however the segmental branches are not confidently evaluated in this examination. Pulmonary arteries are otherwise normal in course and caliber. Aorta: Unremarkable. No aortic aneurysm. No aortic dissection. Lungs: Unremarkable. No consolidation. No masses. Pleural space: Unremarkable. No pneumothorax. No pleural effusion. Heart: There is mild atherosclerotic calcification of the coronary arteries. The heart is not enlarged. No pericardial thickening or effusion. Lymph nodes: Unremarkable. No enlarged lymph nodes. Bones/joints: Old/healed right 11th rib fracture posteriorly. No acute skeletal pathology. Mild multilevel degenerative changes of the spine, as manifested by multilevel anterior osteophytes and multilevel decrease in intervertebral disc space. Soft tissues: Unremarkable. Other findings: The visualized intra-abdominal structures demonstrate no acute findings. IMPRESSION: 1. Suboptimal contrast bolus for the evaluation of pulmonary emboli. Grossly, no large emboli are noted within the main pulmonary arteries, however the segmental branches are not confidently evaluated in this examination. 2. No acute thoracic pathology otherwise appreciated. Dictated and Authenticated by: Reece Rodriguez MD. Ordering:TEVIN Marie MD
--- NOTE | 2020-03-05 20:38 | W.ED.GENAD ---
Discharge Plan Disposition Patient Disposition: AGAINST MEDICAL ADVICE Discharge Details Chief Complaint: GenMedical Clinical Impression: Syncope, Prolonged QT interval, Tachycardia Primary Care Provider: Steve Ma ED Provider: Frank Elizabeth Home Meds and New Rx's Prescriptions: No Action clomipramine 25 mg capsule 150 mg PO HS RF: 0 fluoxetine 60 MG tablet 60 mg PO DAILY RF: 0 amlodipine 5 mg Tablet 5 mg PO DAILY AM RF: 0 metoprolol tartrate 50 mg Tablet 50 mg PO BID RF: 0 Discharge Instructions Instructions: Against Medical Advice (ED) Additional Instructions: You are leaving AGAINST MEDICAL ADVICE. You understand that your condition has not been stabilized. In leaving AGAINST MEDICAL ADVICE you may have life-threatening or lifestyle modifying disease that would worsen and result in your . Please follow-up with your doctor. Call tomorrow. It is recommended that you have ongoing cardiac monitoring. Please return to the emergency department at any time should you change your mind. Medical Decision Making <Frank Elizabeth MD - Last Filed: 03/05/20 21:05> 59-year-old male here with syncopal episode. Patient tachycardic, normotensive and asymptomatic at this time. Unclear etiology for syncope. Screening ECG to assess for arrhythmia was reviewed and interpreted by me: Sinus tachycardia 102 bpm, QTC 498, no STEMI, no signs of Brugada or hypertrophic cardiomyopathy, no delta wave. Screening labs were performed. No significant electrolyte abnormalities. Patient does have elevated alcohol level of 158. He also has an elevated d-dimer 1922. Consider pulmonary embolism. Plan to obtain CT of the chest. CT of the chest interpreted by radiology:IMPRESSION: 1. Suboptimal contrast bolus for the evaluation of pulmonary emboli. Grossly, no large emboli are noted within the main pulmonary arteries, however the segmental branches are not confidently evaluated in this examination. 2. No acute thoracic pathology otherwise appreciated. 20:59 -- Patient was reassessed. He is clinically sober. Reviewed all results with the patient including abnormal lab, long QTc, and discussed treatment plan for hospitalization given unknown etiology for syncope and suboptimal CT chest. Patient declines plan for admission and wishes to leave against medical advise. I reiterated my concerns to him and explained the risks of leaving prior to completion of workup and treatment. I specifically emphasized the possibility of life-threatening or lifestyle modifying disease that would not be appropriately treated if they leave. Patient verbalized understanding of my concerns and the potential for life threatening or lifestyle modifying disease. Patient has capacity to make informed decision. I again explained my concerns and urged the patient to stay for treatment as outlined. Patient continued to refuse. I then discussed potential less ideal alternatives to diagnostic/treatment plan as outlines and patient refused. I recommended that the patient follow-up with primary care physician AUGUSTINE or return to the Emergency Department at any time for further treatment. I will refer patient to primary care where hopefully he can have a Holter monitor placed as soon as possible. <Inder Jean Baptiste MD - Last Filed: 03/05/20 21:38> Patient was to be signed over to me, but signed out AMA with Dr. Elizabeth. Please see Dr. Elizabeth's documentation. HPI <Frank Elizabeth MD - Last Filed: 03/05/20 21:05> General Mode of arrival: ambulatory. Date/Time Provider Initiated Documentation: 03/05/20 18:04. Limitations to Documentation: no limitations. Information obtained by: patient. HPI Narrative: 59-year-old male presents after syncopal episode. 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 He was found by homeowner sometime hours later. Syncope was severe. No modifiers. No associated chest pain or shortness of breath. Patient is currently asymptomatic at this time. No preceding presyncope. Patient's called and noted that he likely consumed alcohol today prior to syncopal episode. Related Data Home Medications Medication Instructions Recorded Confirmed fluoxetine 60 mg PO DAILY 02/25/14 03/05/20 clomipramine 25 mg capsule 150 mg PO HS tab-cap 01/11/19 03/05/20 amlodipine 5 mg PO DAILY AM 07/28/19 03/05/20 metoprolol tartrate 50 mg PO BID 07/28/19 03/05/20 Allergies Allergy/AdvReac Type Severity Reaction Status Date / Time Penicillins Allergy Severe Anaphylaxsi Verified 03/05/20 17:53 s silver Allergy Intermediate rash and Verified 03/05/20 17:53 [From Tegaderm AG Mesh] itching General Stated Complaint: GenMedical JASSON: 3 Review of Systems <Frank Elizabeth MD - Last Filed: 03/05/20 21:05> All systems reviewed & are unremarkable except as noted in HPI and below Constitutional Constitutional: Denies fever(s) Cardiovascular Cardiovascular: Denies chest pain, Denies rapid heart rate, Denies leg edema and Denies dyspnea Respiratory Respiratory: Denies dyspnea PFSH <Frank Elizabeth MD - Last Filed: 03/05/20 21:05> Medical History Depression (Chronic) Folliculitis (Acute) HTN (hypertension) (Chronic) IGT (impaired glucose tolerance) (Acute) Normal colonoscopy (Resolved) 01/22/19, Dr Blas, [facility], normal, repeat in 10 years. mg Surgical History Carpal tunnel syndrome (Inactive 01/28/14) s/p R ECTR History of hip replacement, total (Inactive) History of total left hip replacement (Inactive 05/09/17) Dr. Justin History of total left knee replacement (TKR) (Resolved 02/06/18) Dr. Justin History of total right knee replacement (TKR) (Inactive 12/26/17) Dr. Justin *complicated by partial quad rupture a few weeks post surgery. 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 Sexually active: No Do you think of yourself as: straight/heterosexual Current gender identity: male What type of physical activity do you participate in: walking Do you feel safe at home: Yes Do you feel safe in your relationship?: Yes Exam <Frank Elizabeth MD - Last Filed: 03/05/20 21:05> Const General: cooperative and no acute distress HENMT Head: normocephalic and atraumatic Face and sinus: dry mucous membranes Eyes Conjunctivae: normal conjunctivae Sclera: normal sclerae Neck Neck: trachea midline and supple Resp Auscultation: clear to auscultation bilaterally, no rales, no rhonchi and no wheezes Cardio Jugular venous pressure: no JVD Rate: regular rate and not tachycardic Rhythm: regular rhythm GI Palpation: soft, not firm, no guarding, no masses, no pulsatile masses, not rigid and nontender Skin General skin exam: no rashes or lesions noted Neuro General: patient alert, patient awake, patient oriented x3 and tone normal Extrem General: no calf tenderness and no edema Psych Appearance: grossly normal Mental Status: mental status grossly normal Speech and Movement: speech and movement normal Course <Frank Elizabeth MD - Last Filed: 03/05/20 21:05> Vital Signs Vital signs: Vital Signs Temperature 36.7 C 03/05/20 17:49 Pulse 100 H 03/05/20 17:49 Respiratory Rate 22 03/05/20 17:49 Blood Pressure 150/89 H 03/05/20 17:49 Pulse Oximetry 95 03/05/20 17:49 Temperature 36.7 C 03/05/20 17:49 Temperature Source Skin 03/05/20 17:49 Pulse 99 H 03/05/20 20:01 Pulse 101 H 03/05/20 20:01 Respiratory Rate 17 03/05/20 20:01 Blood Pressure 138/74 03/05/20 20:01 Blood Pressure Mean 85 03/05/20 20:01 Blood Pressure Position Sitting 03/05/20 17:49 Pulse Oximetry 95 03/05/20 20:01 Oxygen Delivery Method Room Air 03/05/20 17:49 Oxygen Flow Rate 0 03/05/20 17:49 Pain Level 0 03/05/20 17:49 Lab/Test Results Lab/Test Results: Laboratory Tests Range/Units 03/05/20 03/05/20 03/05/20 18:16 18:16 18:16 WBC (4.4-10.8) k/cumm 6.53 RBC (4.50-6.00) m/cumm 5.11 Hgb (13.5-17.5) g/dL 11.9 L Hct (40.0-50.0) % 37.2 L MCV (80-95) fL 72.8 L MCH (27.0-33.0) pg 23.3 L MCHC (32.0-36.0) g/dL 32.0 RDW (11.8-14.1) % 18.0 H Plt Count (130-400) x1000/uL 428 H MPV (8.0-11.0) fL 7.8 L Immature Gran % % 0.0 Neutrophils % 51.4 Lymphocytes % 30.3 Monocytes % 13.9 Eosinophils % 3.5 Basophils % 0.9 Absolute Neutrophils (1.2-6.7) k/cumm 3.35 Absolute Lymphocytes (1.2-3.4) k/cumm 1.98 Absolute Monocytes (0.11-0.7) k/cumm 0.91 H Absolute Eosinophils (0.0-0.7) k/cumm 0.23 Absolute Basophils (0.0-0.2) k/cumm 0.06 Differential Comment Rbc morph reviewed RBC Morphology See below Hypochromasia 1+ Anisocytosis 2+ Microcytosis 1+ Macrocytosis 1+ D-Dimer (<500) ng/mlFEU 1922 H Sodium (136-145) mmol/L 136 Potassium (3.5-5.1) mmol/L 3.8 Chloride (98-107) mmol/L 101 Carbon Dioxide (21.0-32.0) mmol/L 22.7 Anion Gap (3-11) mmol/L 12.3 H BUN (7-18) mg/dL 12 Creatinine (0.70-1.30) mg/dL 0.85 Estimated GFR/1.73 m2 (mL/min/1.73m2) >= 60.00 Glucose (74-106) mg/dL 89 Calcium (8.5-10.1) mg/dL 8.4 L Magnesium (1.8-2.4) mg/dL 2.2 Total Bilirubin (0.2-1.0) mg/dL 0.2 AST (15-37) U/L 20 ALT (16-63) U/L 33 Alkaline Phosphatase (46-116) U/L 136 H Creatine Kinase (39-308) U/L 90 Troponin I (<0.06) ng/mL < 0.05 Total Protein (6.4-8.2) g/dL 7.2 Albumin (3.4-5.0) g/dL 3.6 Ethyl Alcohol (<3) mg/dL Range/Units 03/05/20 18:16 WBC (4.4-10.8) k/cumm RBC (4.50-6.00) m/cumm Hgb (13.5-17.5) g/dL Hct (40.0-50.0) % MCV (80-95) fL MCH (27.0-33.0) pg MCHC (32.0-36.0) g/dL RDW (11.8-14.1) % Plt Count (130-400) x1000/uL MPV (8.0-11.0) fL Immature Gran % % Neutrophils % Lymphocytes % Monocytes % Eosinophils % Basophils % Absolute Neutrophils (1.2-6.7) k/cumm Absolute Lymphocytes (1.2-3.4) k/cumm Absolute Monocytes (0.11-0.7) k/cumm Absolute Eosinophils (0.0-0.7) k/cumm Absolute Basophils (0.0-0.2) k/cumm Differential Comment RBC Morphology Hypochromasia Anisocytosis Microcytosis Macrocytosis D-Dimer (<500) ng/mlFEU Sodium (136-145) mmol/L Potassium (3.5-5.1) mmol/L Chloride (98-107) mmol/L Carbon Dioxide (21.0-32.0) mmol/L Anion Gap (3-11) mmol/L BUN (7-18) mg/dL Creatinine (0.70-1.30) mg/dL Estimated GFR/1.73 m2 (mL/min/1.73m2) Glucose (74-106) mg/dL Calcium (8.5-10.1) mg/dL Magnesium (1.8-2.4) mg/dL Total Bilirubin (0.2-1.0) mg/dL AST (15-37) U/L ALT (16-63) U/L Alkaline Phosphatase (46-116) U/L Creatine Kinase (39-308) U/L Troponin I (<0.06) ng/mL Total Protein (6.4-8.2) g/dL Albumin (3.4-5.0) g/dL Ethyl Alcohol (<3) mg/dL 158.4
--- NOTE | 2020-03-06 06:34 | NUR.NOTE ---
referral faxed to pcp for follow up care Nursing Note:
== END 2020-03-05 20:50 | disposition left against medical advice (07) ==
LOC: ER 21:18
PROVIDERS: Emergency Provider Student in an Organized Health Care Education/Training Program; PCP Family Medicine
DX: R55 Syncope and collapse (principal); R00.0 Tachycardia, unspecified; R94.31 Abnormal electrocardiogram [ECG] [EKG]; F10.120 Alcohol abuse with intoxication, uncomplicated; Y90.6 Blood alcohol level of 120-199 mg/100 ml; R79.1 Abnormal coagulation profile; Z53.29 Procedure and treatment not carried out because of patient's decision for other reasons; I10 Essential (primary) hypertension; R73.02 Impaired glucose tolerance (oral)
CPT/HCPCS: 36415; 36416; 71275; 80053; 82550; 82962; 93005; 96360; 99285; 80320; 83735; 84484; 85025; 85379; 93010; J3490

== ENCOUNTER 2020-03-11 03:17 | Outpatient (CLI) | payer MEDICAID, SELFPAY | END 2020-03-11 03:37 | PROVIDERS: PCP Family Medicine; Visit Provider Nurse Practitioner Family | DX: R55 Syncope and collapse (principal); R00.0 Tachycardia, unspecified | CPT/HCPCS: 93225 ==

== ENCOUNTER 2020-03-13 12:09 | Outpatient (CLI) | payer MEDICAID, SELFPAY ==
--- NOTE | 2020-03-16 08:38 | W.HOLTRPT ---
Date of service: 03/16/20 Time of Service: 08:38 Holter Monitor Report Holter Monitor Note: This is a 24-hour Holter monitor ordered for indication of syncope. Patient was in normal sinus rhythm for the majority of the recording. The average heart rate was 84 bpm. There were no episodes of supraventricular tachycardia and one single premature atrial contraction. There are no episodes of ventricular tachycardia and one single ventricular ectopic beat. There were no episodes of atrial fibrillation, no pauses greater than 3 seconds and no episodes of high degree heart block.
== END 2020-03-13 12:29 ==
PROVIDERS: PCP Family Medicine; Visit Provider Nurse Practitioner Family
DX: R55 Syncope and collapse (principal); I45.81 Long QT syndrome; R00.0 Tachycardia, unspecified; I49.1 Atrial premature depolarization
CPT/HCPCS: 94060; 94726; 94729; 93226

== ENCOUNTER 2022-06-06 11:36 | Outpatient (CLI) | payer MEDICAID, SELFPAY ==
--- NOTE | 2022-06-06 11:15 | DI.RAD_ITS ---
Exam(s) XR HIP RT COMPLETE AP PELVIS EXAM: XR HIP RT COMPLETE AP PELVIS CLINICAL HISTORY: RIGHT HIP PAIN. TECHNIQUE: 2D digital imaging was performed of the right hip. Two images were obtained. AP pelvis a nd lateral right hip views were obtained. COMPARISON: CR,XR XR HIP LT COMPLETE AP PELVIS from 07/31/2019 FINDINGS: BONES: No acute fracture is present. No bony destructive lesion is seen. JOINTS: No dislocation present. There is marked narrowing of the superior joint space of the right hi p. Subchondral sclerosis and cysts are seen across the joint space. Mild hypertrophic changes are s een at both the femoral head and the acetabulum. The patient has the left hip prosthesis. It is inc ompletely imaged on the current examination. SOFT TISSUE: Normal. IMPRESSION: Marked osteoarthritis of the right hip. DATA REPOSITORY: RADIATION DOSE DELIVERED:
== END 2022-06-06 11:37 | disposition home or self-care (01) ==
LOC: DIORS 11:36
PROVIDERS: PCP Family Medicine; Referring Provider Family Medicine; Visit Provider Student in an Organized Health Care Education/Training Program
DX: M16.11 Unilateral primary osteoarthritis, right hip (principal)
CPT/HCPCS: 73502

== ENCOUNTER 2022-08-11 02:48 | Outpatient (CLI) | payer MEDICAID, SELFPAY ==
[2022-08-11 09:14] LABS: HCT 43.7 % (40.0-50.0); HGB 14.7 g/dL (13.5-17.5); MCH 28.8 pg (27.0-33.0); MCHC 33.6 % (32.0-36.0); MCV 86 fL (80-95); Platelet Count 311 10^3/uL (130-400); RDW 13.9 % (11.8-14.1); RDW-SD 43.9 fL; WBC 8.05 10^3/uL (4.4-10.8)
[2022-08-11 10:38] LABS: ALT 32 U/L (16-63); AST 17 U/L (15-37); Albumin 3.7 g/dL (3.4-5.0); Alkaline Phosphatase 117 U/L (46-116); Anion Gap 8.3 mmol/L (3-11); BUN 15 mg/dL (7-18); Bilirubin, Total 0.5 mg/dL (0.2-1.0); CO2 27.7 mmol/L (21.0-32.0); CREATININE 0.8 mg/dL (0.70-1.30); Calcium 8.7 mg/dL (8.5-10.1); Calculated LDL 115 mg/dL (<100); Chloride 102 mmol/L (98-107); Cholesterol 198 mg/dL (<200); Estimated GFR 101.32 (mL/min/1.73m2); Glucose 110 mg/dL (74-106); HDL Cholesterol 48 mg/dL (40-60); Sodium 138 mmol/L (136-145); Total Protein 7.4 g/dL (6.4-8.2); Triglyceride 177 mg/dL (<150)
[2022-08-12 09:58] LABS: Hepatitis C Ab w Rflx HCV PCR Negative (Negative)
[2022-08-12 10:05] LABS: HIV-1/2 Ag & Ab Screen Negative (Negative)
== END 2022-08-11 02:49 | disposition home or self-care (01) ==
LOC: LBO 02:48
PROVIDERS: PCP Family Medicine; Visit Provider Student in an Organized Health Care Education/Training Program
DX: I10 Essential (primary) hypertension (principal); Z11.3 Encounter for screening for infections with a predominantly sexual mode of transmission; M16.11 Unilateral primary osteoarthritis, right hip; Z01.818 Encounter for other preprocedural examination; Z11.4 Encounter for screening for human immunodeficiency virus [HIV]; Z11.59 Encounter for screening for other viral diseases
CPT/HCPCS: 36415; 80053; 80061; 85027; 86803; 87389

== ENCOUNTER 2022-08-16 05:59 | Day surgery (SDC) | payer MEDICAID, SELFPAY ==
[2022-08-16] VITALS (9 sets, daily range): BP systolic 92–131; BP diastolic 62–88; PULSE 67–75; RESP 16–19; TEMP 36.1–36.8; O2SAT 94–98; BMI 42.7
--- NOTE | 2022-08-16 05:20 | W.ANESPRE ---
General Info Date of Service Date Performed: 08/16/22 Height: 5 ft 9.5 in Weight: 133 kg Body Mass Index (BMI): 42.7 Surgical Procedure: Operation Date: 08/16/22 07:50 Proposed Procedure Side Surgeon p Hip Total Hip Anterior ACTIS Stem Right Brennan Justin MD Meds Allergies and Home Medications Allergies Allergy/AdvReac Type Severity Reaction Status Date / Time Penicillins Allergy Severe Anaphylaxsi Verified 08/16/22 06:08 s silver Allergy Intermediate rash and Verified 08/16/22 06:08 [From Tegaderm AG Mesh] itching Home Medication Medication Instructions Recorded fluoxetine 60 mg tablet 60 mg PO DAILY 02/25/14 clomipramine 25 mg capsule 150 mg PO HS 01/11/19 amlodipine 10 mg tablet 10 mg PO DAILY #90 tabs 09/10/21 metoprolol tartrate 50 mg tablet 50 mg PO BID #180 tabs 04/28/22 acetaminophen 500 mg tablet 1,000 mg PO Q6H PRN 08/16/22 (Tylenol Extra Strength) Current Visit Medications: Current Medications Generic Name Dose Route Start Last Admin Trade Name Freq PRN Reason Stop Dose Admin Acetaminophen 1,000 mg 08/16/22 06:00 Acetaminophen 500 Mg Tab PO 08/16/22 16:00 PREOP DANIEL Celecoxib 400 mg 08/16/22 06:00 Celecoxib 200 Mg Cap PO 08/16/22 16:00 PREOP DANIEL Tranexamic Acid 1,000 mg/ 60 mls @ 360 mls/hr 08/16/22 06:00 Sodium Chloride IV 08/16/22 16:00 PREOP DANIEL Cefazolin Sodium 3,000 mg/ 100 mls @ 200 mls/hr 08/16/22 06:00 Sodium Chloride IVPB 08/16/22 18:00 PREOP DANIEL Ringer's Solution 1,000 mls @ 80 mls/hr 08/16/22 06:00 IV 09/14/22 23:59 INFUSION [facility] IV Miscellaneous Supplies 1 each 08/16/22 06:00 Iv Access IV 09/14/22 23:59 DIRECTED DANIEL Sodium Chloride 0 ml 08/16/22 06:00 Normal Saline Flush 10 Ml Syr IV 09/14/22 23:59 PRN PRN Sodium Chloride 0 ml 08/16/22 06:00 Normal Saline 10 Ml Vial IJ 09/14/22 23:59 DIRECTED PRN Sterile Water 0 ml 08/16/22 06:00 Water,Injection,Sterile 10 Ml Vial IJ 09/14/22 23:59 DIRECTED PRN PFSH Active Problems Active Problems: Problem Status Onset Code HTN (hypertension) I10 IGT (impaired glucose tolerance) R73.02 Depression F32.9 Chronic hip pain after total replacement of left hip joint M25.552, G89.29, Z96.642 Left hip prosthetic joint infection T84.52XA Folliculitis L73.9 BMI 45.0-49.9, adult Z68.42 Heavy alcohol consumption Z78.9 Anemia D64.9 Carpal tunnel syndrome of right wrist G56.01 Primary osteoarthritis of right hip M16.11 Medical History Medical History Normal colonoscopy 01/22/19, Dr Blas, [facility], normal, repeat in 10 years. mg Surgical History Surgical History Carpal tunnel syndrome (01/28/14) s/p R ECTR History of carpal tunnel surgery of right wrist History of hip replacement, total History of total bilateral knee replacement (TKR) History of total left hip replacement (05/09/17) Dr. Justin. 11/19/2019 L TRENA reimplantation [place]. [facility] [place] [facility] [place] of total left knee replacement (TKR) (02/06/18) Dr. Justin History of total right knee replacement (TKR) (12/26/17) Dr. Justin *complicated by partial quad rupture a few weeks post surgery. Hx of colonoscopy Hx of total hip arthroplasty left Tobacco Smoking/Tobacco Use Status: Never Passive smoking exposure: No Alcohol Alcohol Intake: current Alcohol intake frequency: a few times a week Alcohol type: beer Substance Use Substance use: Never Substance use type: does not use Vital Signs and Lab Results Vital Signs Most Recent Vital Signs in EMR: Temp Pulse Resp BP Pulse Ox 36.3 C L 75 18 129/88 96 08/16/22 06:18 08/16/22 06:18 08/16/22 06:18 08/16/22 06:18 08/16/22 06:18 Lab Results Blood Type / Crossmatch: No Data to Display Complete Blood Count: White Blood Count 8.05 10^3/uL (4.4-10.8) 08/11/22 09:09 Red Blood Count 5.10 10^6/uL (4.36-5.78) 08/11/22 09:09 Hemoglobin 14.7 g/dL (13.5-17.5) 08/11/22 09:09 Hematocrit 43.7 % (40.0-50.0) 08/11/22 09:09 Platelet Count 311 10^3/uL (130-400) 08/11/22 09:09 Complete Metabolic Panel: Sodium 138 mmol/L (136-145) 08/11/22 09:09 Potassium 4.0 mmol/L (3.5-5.1) 08/11/22 09:09 Chloride 102 mmol/L (98-107) 08/11/22 09:09 Carbon Dioxide 27.7 mmol/L (21.0-32.0) 08/11/22 09:09 BUN 15 mg/dL (7-18) 08/11/22 09:09 Creatinine 0.8 mg/dL (0.70-1.30) 08/11/22 09:09 Est GFR (CKD-EPI 2020) 101.32 (mL/min/1.73m2) 08/11/22 09:09 Calcium 8.7 mg/dL (8.5-10.1) 08/11/22 09:09 Albumin 3.7 g/dL (3.4-5.0) 08/11/22 09:09 Glucose 110 mg/dL (74-106) H 08/11/22 09:09 Liver Function Panel: Alanine Aminotransferase (ALT/SGPT) 32 U/L (16-63) 08/11/22 09:09 Aspartate Amino Transf (AST/SGOT) 17 U/L (15-37) 08/11/22 09:09 Coagulation Panel: No Data to Display Cardiac Panel: No Data to Display Arterial Blood Gas: No Data to Display Venous Blood Gas: No Data to Display Pancreas Panel: No Data to Display Thyroid Panel: No Data to Display Infectious Disease: HIV (1&2) Ag and Ab, 4th Generation Negative (Negative) 08/11/22 09:09 Hepatitis C Antibody Negative (Negative) 08/11/22 09:09 Blood Cultures: No Data to Display Toxicology Panel: No Data to Display Anesthesia Assessment and Plan Anesthesia History Personal History: No History of Anesthesia Complications and Delayed Emergence Family History: No Family History of Anesthesia Complications Exercise Tolerance Exercise Tolerance: Metabolic Equivalents>4 Cardiac & Pulmonary Exam Cardiac Exam: Normal S1/S2 Heart Sounds Pulmonary Exam: Clear Bilateral Breath Sounds Implantable Cardiac Device Does patient have a Pacemaker or an ICD?: No Airway Exam Known Difficult Airway: No Mallampati Class: 3 Mouth Opening: Normal (> 3cm) Thyromental Distance: Greater than 3 cm Neck Range of Motion: Full ROM Neck Circumference: Thick Teeth Condition: Normal Dentition ASA Classification ASA Score: ASA 3 Emergency Case?: No NPO Status NPO Status: NPO Clears >2 hours, Solids >8 hours Anesthesia Plan Resuscitation Status: Full Code Anesthesia Technique: Spinal Anesthesia Airway Planned: Natural Airway Monitors Used: Standard Monitors Preoperative Comments:: 61 yo male for TRENA. Sig PMHx: HTN (amlodipine, metoprolol, BPs 140-150/80-90), depression (fluoxetine), BMI 43, never smoker, occ EtOH. Previous Anes: - spinals x 3 (all ~1.6 mL 0.75% bupivicaine) for previous joints. - colo prop, no airway.
[2022-08-16] MEDS: Acetaminophen 500 MG TAB 1000 MG PO (06:28)
[2022-08-16] MEDS: Celecoxib 200 MG CAP 400 MG PO (06:28)
[2022-08-16] MEDS: Lactated Ringers 1,000 ML 80 ML IV (07:00)
--- NOTE | 2022-08-16 07:18 | W.PM.DSUDISC ---
Date of service: 08/16/22 Time of Service: 07: Discharge Plan Disposition Patient Disposition: HOME Condition: Good Discharge Details Reason For Visit: Right Hip DJD Attending Provider: Brennan Justin Primary Care Provider: Steve Ma Home Meds and New Rx's Prescriptions: New acetaminophen 500 mg tablet 1,000 mg PO Q8H PRN (Reason: pain) Qty: 90 3RF aspirin 81 mg tablet,delayed release (DR/EC) 81 mg PO BID Qty: 60 0RF cefadroxil 500 mg capsule 500 mg PO BID Qty: 14 0RF celecoxib 200 mg capsule 200 mg PO BID PRN (Reason: pain) Qty: 60 1RF oxycodone 5 mg tablet 5 mg PO Q4H Qty: 18 0RF pantoprazole 40 mg tablet,delayed release (DR/EC) 40 mg PO DAILY Qty: 30 0RF Continued amlodipine 10 mg tablet 10 mg PO DAILY Qty: 90 3RF clomipramine 25 mg capsule 150 mg PO HS metoprolol tartrate 50 mg tablet 50 mg PO BID Qty: 180 3RF fluoxetine 60 MG tablet 60 mg PO DAILY Discontinued acetaminophen [Tylenol Extra Strength] 500 mg Tablet 1,000 mg PO Q6H PRN Discharge Instructions Additional Instructions: Total Hip Discharge Instructions Activity: The most important activity is to walk. You should try to take short walks a few times a day. You have no restrictions on movement or positioning, but do not try to force what you do. You will find some stiffness and weakness with hip flexion (lifting your knee). Do not try to strengthen this too early, continue to practice walking and stairs and this will come. - Outpatient physical therapy can be helpful to help return you to a normal gait and improve your flexibility and strength. This can start around 2 weeks. For some patients, it?s not necessary. Usually this is determined at the time of discharge or at the first post-operative visit. - You should wear the FAUSTINO hose on both legs for 2 weeks. Dressing: Keep the surgical dressing in place for at least one week. After the first week it may be removed and replace with light gauze and tape or nothing. It may get wet after 3 days but avoid soaking the dressing. If it gets wet, just lightly pat dry. It is important to always keep some gauze between skin folds, especially when you are sitting. Spend some time with the wound exposed when you are lying flat as the incision does wrinkle onto itself. Medications: - You should take Tylenol and an anti-inflammatory Celebrex as your primary pain control medications. If the Celebrex is too expensive or not covered, please call the office for another alternative (Advil/Ibuprofen or Naproxen/Aleve). - You have been prescribed a stronger pain medication Oxycodone for breakthrough pain, take as needed as prescribed. - You have also been prescribed a stomach acid reduction agent Pantoprozole to help reduce stomach acid and reflux. - You have also been prescribed an antibiotic, Cefadroxil, to help prevent infection given your history of previous infection. - You will be taking Aspirin 81mg twice a day for DVT prevention unless instructed otherwise. - If you have constipation you should take Colace or Miralax (both [id number]). It takes most people 3-4 days to have a bowel movement. Follow-up: 2 weeks If you have any acute concerns or questions, please do not hesitate to contact the office at [phone]. You may contact Dr. Justin with any questions after hours through the hospital at [phone] or on his cell phone at [phone]. Referrals: Brennan Justin MD [ [facility] STAFF PHYSICIAN] - Equipment/Supplies: Walker Activity:: Activity as Tolerated Remove Dressings/Wound Care:: Do Not Remove Shower/Bathe:: 72 hours and Cover Diet:: As Tolerated Discharge Orders Discharge Orders: Discharge Order (Routine); Ordered 08/16/22 Ordered By: Brennan Justin DS: Diagnosis Discharge Diagnosis (1) Primary osteoarthritis of right hip: Status: Acute
[2022-08-16] MEDS: ceFAZolin 3,000 MG in Normal Saline 100 ML 200 MG IVPB (07:46)
--- NOTE | 2022-08-16 09:08 | DI.RAD_ITS ---
Exam(s) XR HIP RT IN OR EXAM: XR HIP RT IN OR CLINICAL HISTORY: right total hip TECHNIQUE: 2D and realtime digital imaging was performed. CONTRAST MATERIAL: Refer to procedure report. COMPARISON: No exams were available for comparison FINDINGS: Fluoroscopy was provided for Dr. Justin during the performance of a right hip arthroplasty. Julieth alvarado refer to the procedure report for complete details. Ka,r=13.1 mGy IMPRESSION: RADIATION DOSE DELIVERED:
--- NOTE | 2022-08-16 09:39 | W.ANESPOSTOP ---
Postoperative Evaluation Date, Time and Location Date Performed: 08/16/22 Time Performed: 09:39 Patient Location: PACU Vital Signs Most Recent Imported Vital Signs: Most Recent Vital Signs Temp Pulse Resp BP Pulse Ox 36.3 C L 75 18 129/88 96 08/16/22 06:18 08/16/22 06:18 08/16/22 06:18 08/16/22 06:18 08/16/22 06:18 Pain Score Most Recent Pain Score: Most Recent Pain Score Pain Level 0 08/16/22 06:18 Assessment Mental Status: Awake (Alert & Oriented to Patient Baseline) Airway and Respiratory Function: Patent airway with normal (patient baseline) respiratory exam Cardiovascular Function: Hemodynamically Stable Hydration Status: Adequately Hydrated Nausea & Vomiting: No Nausea or Vomiting Pain: Other (spinal not fully worn off yet (able to lift heals off the bed with effort, but feels good. ) Peripheral Nerve Block: Patient did not receive a nerve block
--- NOTE | 2022-08-16 11:08 | IN_ITS ---
Date of service: 08/16/22 Time of Service: 11:08 PT Notes Visit Reasons: Right Hip DJD Physical Therapy Day Surgery Initial Evaluation Date: 08/16/2022 Referring Doctor: Brennan Justin MD PT Orders: PT CONSULT: S/P Ortho surgery Precautions: WBAT on R LE with AD. Patient Profile/Admitting Diagnosis: Lonny is a 61-year-old male with degenerative joint disease of the right hip and is status post right anterior total hip arthroplasty on postoperative day 0. PMHX: Medical History? Normal colonoscopy 01/22/19, Dr Blas, [facility], normal, repeat in 10 years. mg Surgical History? Carpal tunnel syndrome (01/28/14) s/p R ECTR History of hip replacement, total History of total left hip replacement (05/09/17) Dr. Justin. 11/19/2019 L TRENA reimplantation [place]. [facility] [place]. [facility] [place] [place] [facility] History of total left knee replacement (TKR) (02/06/18) Dr. Justin History of total right knee replacement (TKR) (12/26/17) Dr. Justin *complicated by partial quad rupture a few weeks post surgery. Social History/Home Situation: Patient lives with in a private home with 4 steps to enter with a rail on the left going up. Patient is independent with all aspects of ADLS prior to surgery although painhad been limiting his safe performance of them. Equipment Owned/DME: [facility], [facility] Subjective: Patient states that this R hip surgery feels much better than the L hip he had. Denies headache, chest pain, and lightheadedness throughout session. Reports 3/10 pain in the R hip with ambulation. Objective: General Observation: Supine and comfortably resting in stretcher. Mepilex dressing over surgical incision. TEDS to B legs. present in room Mental Status: Alert and oriented x 4 Pain: 3/10 on the R hip with ambulation, 2/10 at rest ROM: Right Lower Extremity: Hip flexion WFL. Hip abduction WFL. Knee flexion WFL. Ankle dorsiflexion WFL. Ankle plantarflexion WFL. Left Lower Extremity: Hip flexion WFL. Hip abduction WFL. Knee flexion WFL. Ankle dorsiflexion WFL. Ankle plantarflexion WFL. Strength: Right Lower Extremity: Hip flexors 4/5. Hip abductors 4/5. Knee flexors 5/5. Knee extensors 4/5. Ankle dorsiflexors 5/5. Ankle plantarflexors 5/5. Left Lower Extremity:Hip flexors 5/5. Hip abductors 5/5. Knee flexors 5/5. Knee extensors 5/5. Ankle dorsiflexors 5/5. Ankle plantarflexors 5/5. Sensation: Intact as to pain and light pressure in bilateral lower extremities Bed Mobility/Transfers: Supine to sit stand by assist Sit to stand Stand by assist Stand to sit stand bya ssist Bed to chair stand by assist Gait: 150 feet of level surface ambulation using front wheeled walker with step through heels total gait pattern with standby assist provided. Reported incr ease in pain at 3/10 pain in the right hip. Stairs: 6 x 4 inch steps and 4 x 6 inch steps of holding onto 1 rail with 1 hand and single point cane with the other hand with step to gait pattern requiring only standby assist with no report of increase in pain. Balance: Static Sitting: Normal Dynamic Sitting: Normal Static Standing: Fair Dynamic Standing: Fair Special Tests: Mobility Limitations Standardized Measure [facility] AM-PAC 6 clicks Basic Mobility Inpatient Short Form: Raw Score: 24 CMS Score: 0% deficit Informed Consent/Education: Patient instructed in purpose of PT consult. Education and training on initial set of exercises that can be done at home have been completed with patient. Assessment: Lonny requires the use of a front wheel walker for all mobility ADL performance in order to maximize independence and reduce fall risk. Patient presents with clinical signs and symptoms consistent with current/admitting diagnoses that have resulted to mobility limitations, gait instability, generalized weakness, and impairment of motor control as demonstrated by the following impairment level findings: 1. Decreased strength to right hip major muscle groups 2. Impaired standing balance Impairments are contributing to the following functional limitations: 1. Inability to safely ambulate without assistive device 2. Increase completion time for mobility ADL performance 3. Increased fall risk Patient is assessed as a 97555 moderate complexity based on the following: History: 63-year-old male with impairment level findings, functional limitations, and past medical history as indicated above Examination: Demonstrable impairment in strength, balance, and mobility level with underlying impairments and functional limitations as documented above Presentation: Evolving Decision Makin moderate complexity Goals: N/A. PT evaluation and 1-2 treatment sessions only for functional mobility training using recommended AD and for HEP instruction. Plan of Care/Treatment Plan: N/A. PT evaluation and 1-2 treatment session only for functional mobility training using recommended AD and for HEP instruction. DISCHARGE RECOMMENDATIONS: [] Home with no services [] [] Home with services [specify] [X] Home with outpatient PT. Home when medically cleared by orthopedic surgeon. Will benefit from outpatient PT services in order to maximize functional mobility outcomes and facilitate independent community ambulation without an assistive device. [] SNF for continued rehabilitation [] [] Group Home Care [] [] SNF versus LTC based on ability to participate and progress [] TREATMENT CODE/TIME: 87869 x20 minutes, 9753 0 x 14 minutes beginning at 11:08 AM. Hyaline Thank you for the opportunity to participate in the care of this patient. Charu Taylor PT, DPT, CLT [facility] [place], [place]
--- NOTE | 2022-08-16 21:04 | W.PM.OP ---
Date of service: 08/16/22 Time of Service: 21:07 Operative Note Operative Note DATE OF PROCEDURE: 08/16/22 PRE-OP DIAGNOSIS: Hip Osteoarthritis POST-OP DIAGNOSIS: same PROCEDURE: Right Anterior Total Hip Arthroplasty with Intraoperative Navigation SURGEON: Brennan Justin [employer] DIRECTOR: Mine Iverson ANESTHESIA TYPE: Spinal Refer to Anesthesia Record ESTIMATED BLOOD LOSS: 200 PATHOLOGY: none sent TOURNIQUET TIME: 0 COMPLICATIONS: None Patient was transported to: PACU Patient's condition: stable Implants: 1. Depuy [place] Acetabular Component, 56mm 2. Depuy Acetabular Liner, [id number] 3. Depuy Actis Standard Collared Femoral Stem, Size 8 4. Depuy Altrx Ceramic Femoral Head, Size 36+5mm Indications: I have seen Imtiaz in clinic for symptoms of hip arthritis, confirmed with radiographic findings. Imtiaz has exhausted nonoperative methods and was having significant limitations in daily function and desired better function and less pain. I discussed the technical details of a hip replacement. I explained the risks of the procedure to include, but not limited to, bleeding, infection, pain, stiffness, fracture, damage to nerves and vessels, damage to muscles and tendons, loosening, instability, leg length inequality, need for repeat procedure, blood clot and cardiopulmonary demise. Despite these risks, Imtiaz elected to proceed. Findings: There was significant signs of arthritis throughout the hip. Large osteophytes were present over the femoral neck and acetabulum. Procedure Description: Imtiaz was greeted in the preoperative holding area where the correct side was identified and marked. The consent was reviewed with the patient and signed. The history and physical was updated. All questions were answered. Imtiaz was taken back to the operating room. A spinal anesthestic was then administered. The feet were wrapped with cast padding and Coban and then placed into the boot liners and then into the boots. Care was taken to protect the skin and make sure the heels were fully down and the boots were stable. The patient was then positioned onto the HANA table. Both legs were held in a neutral position. SCDs were applied. The patient was then slid down onto a peroneal post. Prophylactic antibiotics in the form of Cefazolin were administered. 1g of Tranxemic Acid was given intravenously within 30 minutes of incision. The right leg was then prepped with Chloraprep and draped in a standard fashion. A second prep with Chloraprep was performed prior to placement of a shower-curtain type drape with Iodine impregnated skin protection. A timeout to confirm correct identity, side and site, procedure, allergies, anesthesia, and medical concerns was performed. An obliquely oriented incision was made starting lateral to the ASIS and running distal over the Tensor Fascia Tyra (TFL) muscle belly toward the fibular head, approximately 10cm. The skin and soft tissue was dissected sharply, through Javier?s fascia, and to the fascia of the TFL. With the fascia and superior border of the IT band identified, the fascia was incised with a new knife just above any perforators from the IT band. The TFL muscle belly was bluntly dissected away from the fascia and moved laterally. The fat between TFL and rectus was identified to ensure the dissection was not within the TFL. Blunt dissection created space between abductors and the capsule and retractor was placed over the lateral femoral neck. The fibers of the rectus femoris tendon were identified and these were freed from the anterior capsule. A second cobra retractor was placed around the medial femoral neck. The TFL was further retracted laterally to show the deep fascia. Careful dissection through this layer identified three main crossing vessels of the lateral femoral circumflex. These were cauterized in multiple locations and then cut without any noticeable bleeding. The TFL was further released bluntly from the deep fascia to expose anterior hip capsule and fat The Jani orthopaedic retractor was then placed beneath the TFL and against sartorius and medial soft tissues to protect and retract the soft tissues. A T-capsulotomy was then performed starting at the superior lateral acetabulum and moving distally to the intertrochanteric ridge. These capsular flaps were tagged with a No. 1 Ethibond and elevated from within. The capsular flaps were released to the shoulder of the lateral neck and to the lesser trochanter to give excellent visualization of the proximal femur. A neck osteotomy was performed using an oscillating saw based on preoperative templates. This cut started in the shoulder and of the lateral neck and exited medially. The saw was at all times directed medially to avoid injury to the greater trochanter. Gross traction was applied to the leg and the osteotomy opened. The femoral head was removed with a corkscrew, making sure to protect the TFL on its exit. Traction was released after head removal. This was measured on the back table to determine the starting reamer size. Portions of the rectus obscuring visualization were minimally elevated off the superior acetabulum. An anterior retractor was placed over the anterior wall between capsule and labrum and attached to the Gripper retraction system. The femur was rotated to 90 degrees and medial capsule was fully released until the lesser trochanter was palpable and visible; the femur was returned to 30 degrees. A posterior retractor was placed similarly between capsule and labrum. This provided excellent visualization. The contents of the cotyloid fossa were removed with electrocautery and the labrum was removed with a knife. There was a notable floor osteophyte. There was significant chondromalacia of the superior acetabulum. Acetabular reaming began with a 52mm reamer. This first reaming was directed anterior to posterior and medial to get down to the true floor. This was inspected and reamed until the true floor was reached. The anterior retractor was then released and entry and exit was provided by traction on the capsular flaps. I then reamed sequentially up to a 56mm reamer where good fit was obtained. The larger reamers were oriented based on anatomical reference of the anterior and lateral taylor to ensure proper abduction and anteversion. Positioning and size was confirmed with the fluoroscopy. A 56mm Depuy [place] acetabular component was selected. The acetabulum was reamed around the periphery with the selected acetabular size to prevent a rim fit. The deep tissues were irrigated. The acetabular component was then impacted in a position of about 40-45 degrees of abduction and 15-20 degrees of anteversion, using the patient?s anatomy as the ultimate landmark. Fluoroscopy was used to confirm this. There was excellent senior mechanical estimator of the acetabular component and the inserting handle was removed. The acetabular liner, Depuy [id number] polyethylene liner, was inserted and lined up with the tines of the acetabular component. There was no soft tissue interposition. The liner was then impacted into position and confirmed to be well-seated. A portion of the ayo-articular cocktail was then injected around the acetabulum into the capsule and periosteum. This cocktail consisted of 123mg of Ropivacaine, 0.25mg of Epinephrine,, and 15mg of Ketorolac, diluted to 50cc. The leg was rotated to 120 degrees. Any remaining medial capsule was released until the lesser trochanter was easily palpable. A retractor was placed medially. The lateral capsule was further released into the shoulder to allow access to the greater trochanter. A Lopez retractor was placed over the greater trochanter which allowed the trochanter to flip in front of the capsule for excellent exposure. The leg was brought down into maximal extension and 20 degrees of adduction while ensuring there was no impingement on the acetabulum. Any remnant capsule within the trochanter was released. Piriformis and obturator externis were identified and protected. There was excellent access to the proximal femur. The lateral neck remnant was removed with a rongeur. A blunt canal probe was used to identify the canal and trajectory for later broaching. A box osteotome initiated the broach course. A small curved rasp and a curved curette were used to work laterally. Broaching then began with a starter Actis broach. This was inserted manually around the trochanter and into the canal before mallet blows. The broach was seated to the neck cut level based on the neck cut and the preoperative template. Sequential broaching was continued with the Shozu pneumatic broaching device until a tight fit was obtained with good rotational control of the femur. A trial high neck was inserted along with a +1.5 trial head. The leg was brought out of extension and adduction and then reduced with traction and internal rotation. The leg was stable anteriorly in a position of 30 degrees of extension and 90 degrees of external rotation. Fluoroscopy was used to ensure there was no fracture and the stem was seated well. Leg lengths were checked with an AP pelvis and pelvic reference points. Art Circle navigation system was used to confirm appropriate positioning and leg length and offset. This slightly overcorrected the offset but would be improved with going to the [facility] with a +5. Once content with the desired offset and leg lengths, the leg was brought back into extension, external rotation and adduction. The periosteum and surrounding tissue was injected with remaining portion of the ayo-articular cocktail. The proximal femur was irrigated as well as the deep tissues. The Zipzoomuy Actis standard collared stem, size 8, was then manually inserted into the proximal femur making sure to control rotation. It was then malleted into position with light blows, giving breaks to allow bone expansion and decrease risk of fracture. The selected Depuy Altrx Ceramic Head, size 36+5mm, was then placed onto the clean and dry trunnion and secured with impaction onto the tapered fit. The leg was brought back out of extension and adduction and reduced with traction and internal rotation. Stability was confirmed with no shuck at 90 degrees of external rotation and 30 degrees of extension. No impingement through range of motion arc. Final x-ray images were obtained with fluoroscopy to confirm adequate positioning and no intraoperative fracture. The deep tissues were thoroughly irrigated with Surgiphor, betadine solution. This was allowed to sit in the wound for 3 minutes before being thoroughly irrigated out with normal saline. The capsule was then reapproximated with the previously placed Ethibond sutures. The TFL fascia was finally closed with a No. 2 Stratafix, barbed suture. Deep tissues were then reapproximated with 0 Vicryl and a running 2-0 Vicryl. The skin was closed with a running 4-0 Monocryl in a subcuticular fashion. This was reinforced with skin glue. A Mepilex silver dressing was applied. At the end of the case, all counts were correct. Imtiaz was transferred to the hospital bed without difficulty and suffering no apparent complication. Imtiaz has a good prognosis. Physical therapy will start today and without restrictions, weight-bearing as tolerated. Aspirin 81mg BID will be used for DVT prophylaxis.
== END 2022-08-16 12:20 | disposition home or self-care (01) ==
PROVIDERS: PCP Family Medicine; Visit Provider Student in an Organized Health Care Education/Training Program
PROC: (CPT 27130; principal; 2022-08-16 07:30)
DX: M16.11 Unilateral primary osteoarthritis, right hip (principal); I10 Essential (primary) hypertension; R73.02 Impaired glucose tolerance (oral)
CPT/HCPCS: 27130; 20985; 97162; 97530; 73501; J0690; J1100; J2250; J2370; J2405

== ENCOUNTER 2022-08-29 10:20 | Outpatient (CLI) | payer MEDICAID, SELFPAY ==
--- NOTE | 2022-08-29 09:45 | DI.RAD_ITS ---
Exam(s) XR HIP RT COMPLETE AP PELVIS EXAM: XR HIP RT COMPLETE AP PELVIS INDICATION: 1ST POST OP R TRENA. COMPARISON: CR XR HIP RT COMPLETE AP PELVIS from 06/06/2022 XA XR HIP RT IN OR from 08/16/2022 TECHNIQUE: 2D digital imaging was performed. Three views. FINDINGS: There has been no change in the alignment of the right hip prosthesis. There are no abnormal surroun ding bony lucencies. The left hip prosthesis is also grossly unchanged. DATA REPOSITORY: RADIATION DOSE DELIVERED:
== END 2022-08-29 10:21 | disposition home or self-care (01) ==
LOC: DIORS 10:20
PROVIDERS: PCP Family Medicine; Referring Provider Family Medicine; Visit Provider Student in an Organized Health Care Education/Training Program
DX: Z96.641 Presence of right artificial hip joint (principal)
CPT/HCPCS: 73502

== ENCOUNTER 2023-08-21 13:13 | Outpatient (CLI) | payer MEDICAID, SELFPAY ==
--- NOTE | 2023-08-21 09:45 | DI.RAD_ITS ---
Exam(s) XR HIP RT AP LAT ONLY EXAM: XR HIP RT AP LAT ONLY CLINICAL HISTORY: ANNUAL F/U R TRENA. TECHNIQUE: 2D digital imaging was performed. Two views COMPARISON: CR XR HIP RT COMPLETE AP PELVIS from 08/29/2022 FINDINGS: There has been no change in the alignment of the right hip prosthesis. No abnormal bony lucencies ar e seen. DATA REPOSITORY: RADIATION DOSE DELIVERED:
== END 2023-08-21 13:14 | disposition home or self-care (01) ==
LOC: DIORS 13:13
PROVIDERS: PCP Family Medicine; Visit Provider Student in an Organized Health Care Education/Training Program
DX: Z96.641 Presence of right artificial hip joint (principal); Z47.1 Aftercare following joint replacement surgery
CPT/HCPCS: 73502

== ENCOUNTER 2023-11-08 10:28 | Outpatient (CLI) | payer MEDICAID, SELFPAY ==
[2023-11-08 12:39] LABS: Abs Immature Grans 0.05 10^3/uL (0.0-0.06); Absolute Basophil Count 0.09 10^3/uL (0.0-0.2); Absolute Eosinophil Count 0.24 10^3/uL (0.0-0.7); Absolute Lymphocyte Count 2.06 10^3/uL (1.2-3.4); Absolute Monocyte Count 1.05 10^3/uL (0.1-0.8); Absolute Neutrophil Count 5.14 10^3/uL (1.2-6.7); Eosinophils % 2.8; HCT 41.1 % (40.0-50.0); HGB 13.7 g/dL (13.5-17.5); Immature Grans % 0.6; Lymphocytes % 23.9; MCH 28.7 pg (27.0-33.0); MCHC 33.3 % (32.0-36.0); MCV 86 fL (80-95); MPV 8.3 fL (8.0-11.0); Monocytes % 12.2; Neutrophils % 59.5; Platelet Count 301 10^3/uL (130-400); RBC 4.78 10^6/uL (4.36-5.78); RDW 14.8 % (11.8-14.1); RDW-SD 47.6 fL; WBC 8.63 10^3/uL (4.4-10.8)
[2023-11-08 12:49] LABS: ALT 41 U/L (16-63); AST 26 U/L (15-37); Albumin 3.5 g/dL (3.4-5.0); Alkaline Phosphatase 105 U/L (46-116); Anion Gap 7.8 mmol/L (3-11); BUN 15 mg/dL (7-18); Bilirubin, Total 0.4 mg/dL (0.2-1.0); CO2 27.2 mmol/L (21.0-32.0); CREATININE 0.8 mg/dL (0.70-1.30); Calcium 8.5 mg/dL (8.5-10.1); Calculated LDL 98 mg/dL (<100); Chloride 100 mmol/L (98-107); Cholesterol 188 mg/dL (<200); Estimated GFR 100.06 (mL/min/1.73m2); Glucose 95 mg/dL (74-106); HDL Cholesterol 55 mg/dL (40-60); Potassium 4.5 mmol/L (3.5-5.1); Sodium 135 mmol/L (136-145); Triglyceride 176 mg/dL (<150)
[2023-11-08 12:51] LABS: Hemoglobin A1C 5.9 % (<5.7)
[2023-11-08 17:57] LABS: PSA, Screening 0.2 ng/mL (<=4.5)
== END 2023-11-08 10:29 | disposition home or self-care (01) ==
LOC: LOS 10:28
PROVIDERS: PCP Family Medicine; Visit Provider Family Medicine
DX: E11.51 Type 2 diabetes mellitus with diabetic peripheral angiopathy without gangrene (principal); Z12.5 Encounter for screening for malignant neoplasm of prostate; D64.9 Anemia, unspecified; E78.5 Hyperlipidemia, unspecified; R10.9 Unspecified abdominal pain
CPT/HCPCS: 36415; 80053; 80061; 84153; 83036; 85025